=== PATIENT | male | born 1990 | race African-American/Black ===

== ENCOUNTER 2018-09-14 07:33 | Emergency (ER) | payer MEDICAID, OTHER ==
[~2018-09-14] VITALS: Ht 165.1 cm; Wt 73.0 kg
[2018-09-14] MEDS ORDERED: IBUP-2030 PO (07:52)
[2018-09-14] MEDS ORDERED: [UNRECOGNIZED DRUG - OTHER] (07:52)
[2018-09-14] MEDS ORDERED: HYDROCODONE/ACETAMINOPHEN 5/325MG TABLET PO ONE (10:00)
[2018-09-14 10:21] VITALS: BP 133/89
== END 2018-09-14 10:21 | disposition home or self-care (01) ==
LOC: ER 07:33
DX: S92.352A Displaced fracture of fifth metatarsal bone, left foot, initial encounter for closed fracture (principal); J45.909 Unspecified asthma, uncomplicated; F17.200 Nicotine dependence, unspecified, uncomplicated; X50.1XXA Overexertion from prolonged static or awkward postures, initial encounter; Y93.K1 Activity, walking an animal; Y92.85 Railroad track as the place of occurrence of the external cause; Z90.5 Acquired absence of kidney
CPT/HCPCS: 29515; 73610; 73630; 99283; Z7610